=== PATIENT | female | born 1965 | race Two or more races ===

== ENCOUNTER 2022-03-05 04:14 | Day surgery (SDC) | payer OTHER ==
[2022-03-03 12:11] VITALS: BMI 26.4
[2022-03-05] MEDS ORDERED: PROPOFOL 20 ML ONE (15:23)
[2022-03-05] MEDS ORDERED: MIDAZOLAM HCL 2 MG/2 ML SINGLE DOSE VIAL ONE (15:23)
[2022-03-05] MEDS ORDERED: ceFAZolin SODIUM 1 GM VIAL ONE (15:35)
[2022-03-05] MEDS ORDERED: ceFAZolin SODIUM 1 GM VIAL IVPB ONE (15:37)
[2022-03-05] MEDS ORDERED: DEXAMETHASONE SOD PHOSPHATE 4 MG/1 ML VIAL ONE (15:41)
[2022-03-05] MEDS ORDERED: KETOROLAC TROMETHAMINE 30 MG/1 ML VIAL ONE (15:42)
[2022-03-05] MEDS ORDERED: ONDANSETRON 4 MG/2 ML VIAL IVPUSH PRN (16:55)
[2022-03-05] MEDS ORDERED: oxyCODONE HCL 5 MG TABLET PO PRN (16:55)
[2022-03-05] MEDS ORDERED: ACETAMINOPHEN 325 MG TABLET (FP) PO PRN (16:55)
[2022-03-05] MEDS ORDERED: LACTATED RINGERS SOLUTION 1,000 ML IV SCH (17:00)
[2022-03-05 17:57] VITALS: TEMP 98.2
[2022-03-05 18:45] VITALS: BP 154/87; PULSE 88
== END 2022-03-05 18:25 | disposition home or self-care (01) ==
LOC: JASU-SURG 04:14
PROVIDERS: ATTEND Urology
PROC: 0TBB8ZX Excision of Bladder, Via Natural or Artificial Opening Endoscopic, Diagnostic (ICD-10-PCS; principal; 2022-03-05 15:30)
DX: N30.81 Other cystitis with hematuria (principal); R31.0 Gross hematuria
CPT/HCPCS: 88108; 88305-TC; 94760